=== PATIENT | female | born 1975 | race Caucasian/White ===

== ENCOUNTER 2022-03-14 06:51 | Day surgery (SDC) | payer OTHER ==
[2022-03-14] MEDS ORDERED: Propofol 200 MG/20 ML SDV ONE ×2 (07:23→08:40)
[2022-03-14] MEDS ORDERED: Midazolam 1 MG/ML 2 ML SDV ONE (07:23)
[2022-03-14] MEDS ORDERED: fentaNYL 50 MCG/ML SDV ONE (07:24)
[2022-03-14] MEDS ORDERED: Lactated Ringers 1,000 ML IV SCH (07:30)
[2022-03-14 09:47] VITALS: BP 123/54; PULSE 53
== END 2022-03-14 09:56 | disposition home or self-care (01) ==
LOC: JP.SDS 06:51
PROVIDERS: ATTEND Student in an Organized Health Care Education/Training Program
DX: D12.5 Benign neoplasm of sigmoid colon (principal); D12.3 Benign neoplasm of transverse colon; F17.200 Nicotine dependence, unspecified, uncomplicated; Z88.1 Allergy status to other antibiotic agents; Z79.899 Other long term (current) drug therapy
CPT/HCPCS: 45380; 45385; 88305; J2250; J2704; J3010; J7120

== ENCOUNTER 2023-10-05 07:24 | Emergency (ER) | payer OTHER ==
[2023-10-05 07:49] LABS: BASOPHILS ABSOLUTE AUTO 0.06 K/uL (0.00-0.10); BASOPHILS PERCENT AUTO 0.6 % (0.1-1.3); EOSINOPHILS ABSOLUTE AUTO 0.11 K/uL (0.00-0.40); EOSINOPHILS PERCENT AUTO 1.1 % (0.0-5.4); HEMATOCRIT 36.1 % (34.3-46.0); HEMOGLOBIN 12.5 g/dL (11.2-15.5); IMMATURE GRAN ABSOLUTE AUTO 0.03 K/uL (0.00-0.23); IMMATURE GRAN PERCENT AUTO 0.3 % (0.0-0.7); LYMPHOCYTES ABSOLUTE AUTO 1.65 K/uL (0.8-3.3); MEAN CORPUSCULAR HEMOGLOBIN 32.6 pg (31.6-35.5); MEAN CORPUSCULAR HGB CONC 34.6 g/dL (31.6-35.5); MONOCYTES ABSOLUTE AUTO 0.55 K/uL (0.20-0.90); MONOCYTES PERCENT AUTO 5.7 % (3.3-12.6); NEUTROPHILS ABSOLUTE AUTO 7.33 K/uL (1.0-7.6); NEUTROPHILS PERCENT AUTO 75.3 % (40.0-78.1); PLATELET COUNT,PLT 228 K/uL (130-375); RED BLOOD CELL COUNT 3.84 M/uL (3.77-5.24); WHITE BLOOD CELL COUNT,WBC 9.7 K/uL (3.2-11.0)
[2023-10-05 08:17] LABS: CALCIUM 8.9 mg/dL (8.5-10.1); CREATININE 0.7 mg/dL (0.6-1.0); EST CRCL DRUG DOSING (CG) 91.01 mL/min; TSH ULTRASENSITIVE 1.599 uIU/mL (0.358-3.740)
[2023-10-05 08:42] VITALS: BP 126/68; PULSE 92
== END 2023-10-05 08:46 | disposition home or self-care (01) ==
LOC: JP.ED 07:24
DX: R00.2 Palpitations (principal); Z90.710 Acquired absence of both cervix and uterus; Z88.0 Allergy status to penicillin; Z88.8 Allergy status to other drugs, medicaments and biological substances
CPT/HCPCS: 36415; 80048; 84443; 85025; 99284

== ENCOUNTER 2024-11-06 08:16 | Day surgery (SDC) | payer OTHER ==
[2024-11-06] MEDS: Lactated Ringers 1,000 ML IV SCH (08:57)
[2024-11-06] MEDS ORDERED: Propofol 200 MG/20 ML SDV ONE (09:27)
[2024-11-06] MEDS ORDERED: fentaNYL 100 MCG/2 ML SDV ONE (09:27)
[2024-11-06] MEDS ORDERED: Midazolam 1 MG/ML 2 ML SDV ONE (09:27)
[2024-11-06 11:49] VITALS: BP 105/62; PULSE 66
== END 2024-11-06 11:51 | disposition home or self-care (01) ==
LOC: JP.SDS 08:16
PROVIDERS: ATTEND Surgery
DX: Z12.11 Encounter for screening for malignant neoplasm of colon (principal); Z86.0101 Personal history of adenomatous and serrated colon polyps; Z87.891 Personal history of nicotine dependence
CPT/HCPCS: 45378; J2250; J2704; J3010; J7120; 00812-QZ